=== PATIENT | male | born 1990 | race Caucasian/White ===

== ENCOUNTER 2016-09-22 01:18 | Emergency (ER) | payer OTHER ==
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
[2016-09-22 03:15] VITALS: BP 135/73
== END 2016-09-22 03:10 | disposition home or self-care (01) ==
LOC: MW.ED 01:18
DX: Z00.00 Encounter for general adult medical examination without abnormal findings (principal); F41.9 Anxiety disorder, unspecified; F32.9 Major depressive disorder, single episode, unspecified; Z79.899 Other long term (current) drug therapy
CPT/HCPCS: 99281; 99283